=== PATIENT | male | born 1970 | race Caucasian/White ===

== ENCOUNTER 2023-04-15 23:57 | Observation (INO) | payer OTHER, SELFPAY ==
[2023-04-15 16:44] VITALS: BP 145/98
[2023-04-15 17:14] LABS: % Basophils 1.3 % (0-2); % Immature Granulocytes 0.9 % (0-0.5); % Lymphocytes 24.9 % (20.5-51.1); % Monocytes 12.9 % (1.7-9.3); Absolute Basophils 0.2 10^3/uL (0-0.2); Absolute Eosinophils 0.7 10^3/uL (0-0.7); Absolute Immature Granulocytes 0.1 10^3/uL (0-0.05); Absolute Monocytes 1.6 10^3/uL (0.1-0.6); Absolute Neutrophils 6.5 10^3/uL (1.4-6.5); Hematocrit 44.3 % (39.0-52.0); Hemoglobin 16.2 g/dL (13.0-18.0); Mean Corp Hgb Conc. 36.6 g/dL (33.0-37.0); Mean Corpuscular Hgb 27.2 pg (27.0-31.0); Mean Corpuscular Volume 74.3 fL (80.0-94.0); Mean Platelet Volume 9.2 fL (7.4-10.4); Nucleated Red Blood Cells % 0 % (-); Platelet Count 432 10^3/uL (130-400); Red Blood Cell Count 5.96 10^6/uL (4.70-6.10); Red Cell Dist. Width 14.1 % (11.5-14.5); White Blood Cell Count 12.1 10^3/uL (4.8-10.8)
[2023-04-15 17:29] LABS: ALT (SGPT) 25 U/L (0-50); AST (SGOT) 27 U/L (17-59); Alkaline Phosphatase 54 U/L (38-126); Blood Urea Nitrogen 22 mg/dl (9-20); Calcium 9.3 mg/dl (8.4-10.2); Carbon Dioxide 26 mmol/L (22-30); Chloride 102 mmol/L (98-107); Glucose 130 mg/dl (70-99); Potassium 4.4 mmol/L (3.5-5.1); Sodium 137 mmol/L (135-145); Total Protein 7.3 g/dl (6.3-8.2); eGFR > 60.00
[2023-04-15 17:39] LABS: Troponin I < 0.012 ng/ml
[2023-04-15 18:09] LABS: D-Dimer 0.58 ug/mlFEU (0.00-0.50)
--- NOTE | 2023-04-15 21:58 | ED.GENMED ---
History of Present Illness
General
Chief Complaint: DVT/Possible Blood Clot
Source: patient
Exam Limitations: none
Time Seen by Provider: 04/15/23 19:41
Nursing documentation reviewed up to this point in time: agreed with
Travel History
Have you had any contact with someone who has COVID-19?: No
Do you have any symptoms of coronavirus? Fever > 100 degrees, chills, cough, shortness of breath, sore throat, loss of taste or smell, muscle aches, or headache?: No
History of Present Illness
History of Present Illness:
Patient to ED with complaint of left calf pain, chest heaviness. States symptoms started thurs after flyng to [place] and back States he had a prior DVT and PE 1.5 yrs ago. He was placed on Eliquis, discontinued Feb 2022, no further issues.
Denies fever/chills, n/v/d. Denies chest pain, states he feels some difficulty taking a deep breath. Brought self to ED for eval.
Past History
Past History
ED Past Medical History: Other (Spherocytosis, PE, DVT)
ED Past Surgical History: Other (Hernia repair, splenectomy)
Social History
Tobacco: Non-smoker
Alcohol: Occasional
Drug: None
Personal:
Living: with family
Employment: Employed
Family History
Family History: Other (PE)
Review of Systems
Review of Systems
Constitutional: Reports no symptoms
EENT: Reports no symptoms
Respiratory: Reports other (Some difficulty taking a deep breath)
Cardiac: Reports other (Chest heaviness)
ABD/GI: Reports no symptoms
: Reports no symptoms
Musculoskeletal: Reports no symptoms
Skin: Reports no symptoms
Neurological: Reports no symptoms
Psychiatric: Reports no symptoms
Phy Exam
General Physical Exam
General Presentation: well appearing and no apparent distress
General age: appears stated age
General Skin: warm and dry
General Habitus: normal
General Mental: alert
Cardiovascular Exam
Cardiovascular Exam: regular rate/rhythm
Pulmonary Exam
Pulmonary Exam: lungs clear and no respiratory distress
Gastrointestinal Exam
Gastrointestinal Exam: normal bowel sounds, non tender and soft
Musculoskeletal Exam
Musculoskeletal Exam: full ROM and neuro vasc intact
Skin Exam
Skin Exam: normal color
Psychiatric Exam
Psychiatric Exam: normal mood/affect
Course
Orders/Labs/Results
Orders:
Orders
04/15/23 16:50
Electrocardiogram (*1) Urgent
Reason for Study: Shortness of Breath
US Periph Venous LOWER Ext LT Urgent
Comment: .
Reason For Exam: leg pain
04/15/23 16:51
EKG- Treatment ONCE
04/15/23 17:05
Complete Blood Count/With Diff Urgent
Comprehensive Metabolic Panel Urgent
D-Dimer Urgent
Troponin I Urgent
04/15/23 20:48
CT Chest Pe Study Urgent
Comment:
Reason For Exam: cp elevated ddimer, hx PE
04/15/23 22:16
Heparin 10,000 units IV NOW STA
Nursing to Place Non Medication Order As Directed
Physician Order: PTT 6 hours after initial start of Heparin infusion
Above order entered?: Yes
04/15/23 22:18
Add On- LAB Urgent
Tests Added?: PTT
04/15/23 22:28
PTT Urgent
04/15/23 22:30
Heparin 96043 Units/250 ml 25,000 units in 250 ml IV PER PROTOCOL
Weight to be used for heparin protocol in kilograms (kg):: 126.7
Protocol:: DVT/PE
PTT Goal Range to be used:: PTT 73 to 111 seconds
Order type:: Initial
INITIAL Infusion Dose (UNITS/KG/hr) & then follow protocol:: 18 units/kg/hr
Infusion Dose in UNITS/hr & then follow protocol (UNITS/hr):: 2,000
INFUSION RATE in mL/hr & then follow protocol (mL/hr):: 20
For DVT/PE algorithm, re-bolus for low PTT?: Yes
PTT less than or equal to 64 seconds:: Re-bolus 80 units/kg (max 10,000units). Increase by 500 units/hr
(+ 5mL/hr)
PTT 64.1 to 72.9 seconds:: Re-bolus 40 units/kg (max 5,000 units). Increase by 300 units/hr
(+ 3mL/hr)
PTT 73 to 111 seconds:: Target Range. No change in rate.
PTT 111.1 to 130.9 seconds:: Decrease rate by 300 units/hr (- 3 mL/hr)
PTT 131 to 199.9 seconds:: HOLD for 1 hr. Then decrease by 400 units/hr (- 4mL/hr)
PTT greater than or equal to 200 seconds:: HOLD for 2 hrs & Notify Provider. Then decrease by 500 units/hr
(- 5mL/hr)
Lab follow-up:: Each change, PTT q6h until 2 consecutive are therapeutic. Then
PTT daily.
04/15/23 23:56
Admit/Transfer Patient As Directed
Co-Sign Provider:
Level of Care: Inpatient admission
Assign to:: Telemetry
Physician / Group: sachin wheeler
Diagnosis: bilat Pe provoked recurrent
Reason for Telemetry: Arrhythmia
Date to Stop Telemetry: 04/18/23
Time to Stop Telemetry: 11:00
Reason for Hospitalization: bilat Pe provoked recurrent
Expected length of stay greater than two midnights?: Yes
ELOS- Estimated Length of Stay in days: 3
I certify the patient meets the requirements for IP care: Yes
Code Status As Directed
Resuscitation Status: Full Code
04/16/23 00:53
VTE Contraindication Routine
VTE Mechanical Device Contraindication: Medical Contraindication
Pharmocologic Contraindication: Medical Contraindication
Comment: pt on iv heparin
Activity As Directed
Activity Level: As Tolerated
Vital Signs As Directed
Frequency: Per unit guidelines
Ot Eval And Treat Routine
Pt Eval And Treat Routine
Activity Level: As Tolerated
04/16/23 04:16
Basic Metabolic Panel IN AM
Complete Blood Count/With Diff IN AM
PTT Urgent
04/16/23 Breakfast
Cholesterol Lowering
At Your Request: Full Participation
Cholesterol Lowering: Sodium, 2 Gram
Abnormal Lab Results
04/15/23
17:05
WBC 12.1 H 10^3/uL
(4.8-10.8)
MCV 74.3 L fL
(80.0-94.0)
Plt Count 432 H 10^3/uL
(130-400)
Abs Immat Gran (auto) 0.1 H 10^3/uL
(0-0.05)
Absolute Monos (auto) 1.6 H 10^3/uL
(0.1-0.6)
Immature Gran % 0.9 H %
(0-0.5)
Monocytes % 12.9 H %
(1.7-9.3)
D-Dimer 0.58 H ug/mlFEU
(0.00-0.50)
BUN 22 H mg/dl
(9-20)
Glucose 130 H mg/dl
(70-99)
04/15/23 17:05
04/15/23 17:05
Vital Signs
Initial and Last Documented VS:
Initial Vital Signs
Temp Pulse Resp BP Pulse Ox
98.2 F 101 18 145/98 97
04/15/23 16:44 04/15/23 16:44 04/15/23 16:44 04/15/23 16:44 04/15/23 16:44
Last Documented Vital Signs
Temp Pulse Resp BP Pulse Ox
98.6 F 78 15 136/84 96
04/16/23 12:35 04/16/23 12:35 04/16/23 12:35 04/16/23 12:35 04/16/23 12:35
*Radiology
Radiology exam reviewed: radiology read reviewed
*Pulse Oximetry
Patient hypoxic: no
*Critical Care Note
Total Time (30-74mins, 75-104mins- exclusive of procedures): Not Applicable
ED Attending Note
-
Portions of this chart may have been created with voice recognition software.� Occasional wrong word or��sound alike� substitutions may have occurred due to the inherent limitations of voice recognition software.
Discharge Plan
Departure
Date of Disposition: 04/15/23
Time of Disposition: 22:22
Presentation/result/management discussed w/ accepting MD/DO: Hospitalist
Patient with high blood pressure during this ER visit?: No
Condition: Fair
Covid-19: Not Applicable
Discharge Problem:
Pulmonary embolism
Interventions
Interventions:
*Risk Screen - Suicide Last Done: 04/15/23 16:47
*General Assessment Last Done: 04/15/23 16:47
*Neglect/Abuse Screening Last Done: 04/15/23 16:47
*ED COVID-19 Vaccine History Last Done: 04/15/23 21:31
*Nursing Disposition Last Done: 04/16/23 12:38
ED- Cardiac Assessment Last Done: 04/15/23 21:01
ED- Pulmonary Assessment Last Done: 04/15/23 21:01
ED-Peripheral Vascular Assessment Last Done: 04/15/23 21:01
ED-Skin Assessment Last Done: 04/15/23 21:01
[2023-04-15 22:15] VITALS: BP 141/96; BMI 37.9
[2023-04-15] MEDS: HEPARIN 10000 UNITS IV (22:35)
[2023-04-15] MEDS: HEPARIN 25000 UNITS/250 ML IV (22:36)
[2023-04-15 22:38] VITALS: BP 141/95
[2023-04-15 22:52] LABS: APTT 24.9 Sec (23.4-35.0)
[2023-04-15 23:00] VITALS: BP 152/94
--- NOTE | 2023-04-15 23:35 | HPS.HSE ---
Addendum entered and electronically signed by Josiah Torres MD 04/16/23 00:01:
53-year-old male past medical history of hereditary spherocytosis status post colectomy, prior pulmonary embolism 1 and half years ago, myocarditis presenting for left calf pain, shortness of breath after flying from [place] back to here.
Multiple family members with history of pulmonary emboli. EKG shows normal sinus rhythm. CT PE shows bilateral lobe subsegmental pulmonary artery emboli right greater than left with borderline right heart strain provoked in the setting of recent
travel/hereditary spherocytosis. Left lower extremity venous ultrasound negative for DVT. Heparin drip started, echocardiogram. Will require lifelong anticoagulation.
Original Note:
Family Physician
-
Family Physician: Amari Negron
Chief Complaint
-
Chest pain, left calf pain
History of Present Illness
53-year-old male complaining of chest heaviness with left calf pain that started on 5 days ago after flying to [place] 5-hour flight and driving 4 hours. He reports a prior DVT and PE 1-1/2 years ago thought to be from post COVID was on
Eliquis and discontinued February 2022. He reports he followed up with hematology had outpatient blood work that was negative for any clotting factors, but he has history of spherocytosis. He has a strong family history of pulmonary embolisms 1
sister April 2019 PE thought to be related to control other sister history of multiple PEs. He denies injury, fever, chills, palpitations, shortness of breath, cough, nausea, vomiting, diarrhea, abdominal pain. History of
spherocytosis requiring splenectomy, sleep apnea Dx 1 to 2 months
Medical History
Past Medical History
Past Medical History: Reports Other
Additional Past Medical History:
DVT and PE 1-1/2 years ago was on Eliquis and discontinued February 2022. Thought to be post-COVID
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
#Spherocytosis
S/P splenectomy
Obesity
sleep apnea Dx 1 to 2 months
Past Surgical History: Reports Other (Hernia repair, splenectomy)
Social History
Tobacco: Non-smoker
Alcohol: Occasional
Drug: None
Personal:
Living: With Family
Employment: Employed
Family History
Family History: Other (Sister DVT thought to be related to control, other sister history of multiple PEs)
Allergies / Home Medications
Allergies reflects when Allergies were last updated in [employer].
Home Medications with original date entered in [employer]
Allergy/Medication List:
Allergies
Allergy/AdvReac Type Severity Reaction Status Date / Time
No Known Allergies Allergy Verified 04/15/23 16:43
Home Medications
No Meds [No Current Medications] 04/15/23
Review of Systems
-
History Source: Patient and Family ( at bedside)
A 12 point ROS was completed and negative except as noted: Yes
Constitutional: Denies Fever or Chills
EENT: Denies Sore Throat or Mouth Swelling
Respiratory: Reports Trouble Breathing; Denies Cough
Cardiac: Reports Chest Pain
Abdomen/GI: Denies Abdominal Pain, Nausea, Vomiting, Diarrhea or Constipated
: Denies Dysuria, Frequency, Flank Pain, Incontinence or Difficulty Voiding
Musculoskeletal: Reports Other (Left mid calf tenderness); Denies Joint Pain or Joint Swelling
Skin: Denies Itching or Rash
Neurological: Denies Dizzy, Headache or Weakness
Endocrine: Reports No Symptoms
Hematologic/Lymphatic: Reports No Symptoms
Psych: Reports Calm
Physical Exam
Vital Signs
Vital Signs
Temp Pulse Resp BP Pulse Ox
98.2 F 78 22 141/95 96
04/15/23 16:44 04/15/23 22:38 04/15/23 22:30 04/15/23 22:38 04/15/23 22:30
Physical Exam
HEENT: NormoCephalic and PERRLA
Respiratory: Clear; No Wheezes, Rales or Rhonchi
Cardiac: S1/S2 and Regular Rhythm; No Murmur, Rub, Gallop or Peripheral Edema
GI: Soft, Non Tender, Non Distended, Normal Bowel Sounds and No Hepatosplenomegaly
Rectal: Deferred by Provider
Genito-urinary: Deferred by me
Musculoskeletal: No Clubbing, No Cyanosis, No Edema and Other (Tenderness to left mid calf)
Skin: Warm and Dry; No Rash or Jaundice
Neuro: AO x 3, No Motor Deficits, Nonfocal/grossly intact and No Sensory Deficits; No Slurred Speech, Facial Droop, Tremors or Sedated
Psych: Calm
Laboratory Results
-
04/15/23 17:05
04/15/23 17:05
Laboratory Results
APTT 24.9 Sec (23.4-35.0) 04/15/23 22:28
Total Bilirubin 1.0 mg/dl (0.2-1.3) 04/15/23 17:05
AST 27 U/L (17-59) 04/15/23 17:05
ALT 25 U/L (0-50) 04/15/23 17:05
Alkaline Phosphatase 54 U/L (38-126) 04/15/23 17:05
Troponin I < 0.012 ng/ml 04/15/23 17:05
Impression/Plan
-
Impression/plan
Admit to telemetry
# Recurrent provoked PE-recent long flight/Spherocytosis
#Hx DVT PE 2021 was on prior Eliquis DC February 2022
-2D echo
-IV heparin gtt
-Consult [facility] cardiology
CT PE study: Bilateral lower lobe subsegmental pulmonary artery emboli were greater than left borderline right heart strain
#Spherocytosis
S/P splenectomy
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
#Obesity due to excess calorie consumption�BMI 37.9 kg
Weight loss recommended
#Sleep apnea Dx 1 to 2 months
-Has not gotten any CPAP or BiPAP
Full code
[2023-04-16] VITALS: BP 147/91
[2023-04-16 04:15] VITALS: BP 122/79
[2023-04-16 04:27] LABS: % Basophils 1.4 % (0-2); % Eosinophils 7.3 % (0-6); % Immature Granulocytes 1.5 % (0-0.5); % Lymphocytes 36.4 % (20.5-51.1); % Monocytes 13.1 % (1.7-9.3); % Neutrophils 40.3 % (42.2-75.2); Absolute Basophils 0.2 10^3/uL (0-0.2); Absolute Eosinophils 0.9 10^3/uL (0-0.7); Absolute Immature Granulocytes 0.2 10^3/uL (0-0.05); Absolute Lymphocytes 4.3 10^3/uL (1.2-3.4); Absolute Monocytes 1.5 10^3/uL (0.1-0.6); Absolute Neutrophils 4.7 10^3/uL (1.4-6.5); Hemoglobin 15.3 g/dL (13.0-18.0); Mean Corp Hgb Conc. 36.4 g/dL (33.0-37.0); Mean Corpuscular Hgb 26.8 pg (27.0-31.0); Mean Corpuscular Volume 73.6 fL (80.0-94.0); Mean Platelet Volume 9.3 fL (7.4-10.4); Nucleated Red Blood Cells % 0 % (-); Platelet Count 431 10^3/uL (130-400); Red Blood Cell Count 5.71 10^6/uL (4.70-6.10); Red Cell Dist. Width 14.3 % (11.5-14.5); White Blood Cell Count 11.7 10^3/uL (4.8-10.8)
[2023-04-16 04:42] LABS: APTT 114.1 Sec (23.4-35.0)
[2023-04-16 05:16] LABS: Blood Urea Nitrogen 18 mg/dl (9-20); Carbon Dioxide 21 mmol/L (22-30); Chloride 105 mmol/L (98-107); Estimated Creatinine Clearance > 125 ml/min; Glucose 111 mg/dl (70-99); Potassium 4.2 mmol/L (3.5-5.1); Sodium 136 mmol/L (135-145); eGFR > 60.00
[2023-04-16 07:43] VITALS: BP 148/101
--- NOTE | 2023-04-16 08:16 | W.PN.HOSP.TC ---
Today's Communication/Plan
-
Discharge today
Assessment / Plan
Assessment / Plan
HPI: 53-year-old male past medical history of hereditary spherocytosis status post colectomy, prior pulmonary embolism 1 and half years ago, myocarditis presenting for left calf pain, shortness of breath after flying from [place] back to here.�
Multiple family members with history of pulmonary emboli.� EKG shows normal sinus rhythm.� CT PE shows bilateral lobe subsegmental pulmonary artery emboli right greater than left with borderline right heart strain provoked in the setting of recent
travel/hereditary spherocytosis.� Left lower extremity venous ultrasound negative for DVT.� Heparin drip started, echocardiogram. Will require lifelong anticoagulation.
#Recurrent provoked PE-recent long flight/Spherocytosis
#Hx DVT PE 2021 was on prior Eliquis DC February 2022
Echocardiogram reviewed, negative for right heart strain
Denies chest pain or shortness of breath, he is not hypoxic
Currently on heparin drip
Medically stable for discharge on Eliquis 10 mg twice a day for 7 days, then 5 mg twice a day
Informed patient that he needs to take anticoagulation lifelong
Follow-up with pulmonology in the office, as well as his primary care doctor 1 week
�� � ���CT PE study:�Bilateral lower lobe subsegmental pulmonary artery emboli were greater than left borderline right heart strain
#Spherocytosis
S/P splenectomy
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
#Obesity due to excess calorie consumption�BMI 37.9 kg
Weight loss recommended
#Sleep apnea Dx 1 to 2 months
-Has not gotten any CPAP or BiPAP
Physical Exam
General: Obese, no acute distress
HEENT: Normocephalic, Atraumatic, EOMI, MMM
Respiratory: Clear to Auscultation bilaterally
Cardiac: Normal S1/S2, Regular Rate and Rhythm
GI: Soft, Nontender, Nondistended, Normal Bowel Sounds
Extremities: No Clubbing, Cyanosis, or Edema
Neuro: Nonfocal/Grossly Intact
Psych: Calm, Cooperative
Derm: No Visible lesions
Anticipated Discharge: Today
Subjective/Interval History
-
Date of Service: April 16, 2023
Patient denies chest pain, denies shortness of breath.
Objective Data
-
Labs:
Laboratory Results
04/15/23 04/15/23 04/16/23
22:16 22:28 04:16
WBC 11.7 H
Hgb 15.3
Hct 42.0
Plt Count 431 H
APTT Cancelled 24.9 114.1 H
Sodium 136
Potassium 4.2
Chloride 105
Carbon Dioxide 21 L
BUN 18
Creatinine 0.9
Glucose 111 H
Calcium 9.0
04/16/23
11:00
WBC
Hgb
Hct
Plt Count
APTT Pending
Sodium
Potassium
Chloride
Carbon Dioxide
BUN
Creatinine
Glucose
Calcium
Vital Signs:
Vital Signs
Temp Pulse Resp BP Pulse Ox
98.4 F 79 18 148/101 96
04/16/23 07:43 04/16/23 07:43 04/16/23 07:43 04/16/23 07:43 04/16/23 07:43
I&O
04/15/23 04/16/23 04/17/23
06:59 06:59 06:59
Output Total 250 / 250
Balance -250 / -250
[2023-04-16 11:27] LABS: APTT 63.8 Sec (23.4-35.0)
--- NOTE | 2023-04-16 11:52 | CM ---
ED CM consulted for Eliquis card
Discussion with nursing- pharmacist at nursing desk and will provide card
CM will remain available for further assistance with Eliquis if needed
[2023-04-16] MEDS: ELIQUIS 10 MG PO (12:03)
--- NOTE | 2023-04-16 12:19 | W.DCSUMMARY ---
Discharge Summary
Discharge Data
Date of Admission: 04/15/23
Date of Discharge: 04/16/23
-
Pending Results: No
Hospital Course
Discharge diagnosis:
Recurrent provoked bilateral pulmonary emboli
History spherocytosis status post splenectomy
History of myocarditis secondary to COVID in 2019
Obstructive sleep apnea
Obesity due to excess calories
Chest CT:
Bilateral lower lobe subsegmental pulmonary artery emboli, right greater than left. Borderline right heart strain.
LLE Dopplers:
The left common femoral, superficial femoral, popliteal and proximal posterior tibial veins are patent and compressible with normal flow.
Echo:
�Normal left ventricular size, wall thickness and systolic function. No regional
�wall motion abnormalities are seen. LV ejection fraction is 65% by Carvalho's
�method of discs. Normal diastolic function.
�Normal right ventricular size. Normal right ventricular systolic function. S'
�RV free wall tissue Doppler is normal.
�Trace tricuspid regurgitation. Estimated pulmonary artery pressure of 25-30
�mmHg assuming a right atrial pressure of 3 mmHg.
Compared to prior study dated 11/23/21, there is no significant change
Hospital course:
53-year-old male past medical history of hereditary spherocytosis status post splenectomy, prior pulmonary embolism 1 and half years ago, and myocarditis presented with left calf pain, and shortness of breath after flying from [place] back to
here. Patient was found to have acute bilateral PE. Left lower extremity Dopplers were negative for DVT. He was treated with a heparin drip. Echocardiogram was negative for right heart strain.
Patient was not hypoxic, he did not have any more shortness of breath or chest pain. He was transitioned to Eliquis. He was counseled that he requires lifelong anticoagulation. He is medically stable for discharge on Eliquis 10 mg twice a day for
7 days, then 5 mg twice a day. He has been instructed to follow-up with his usual formula mixer in the office, as well as his primary care doctor 1 week.
Disposition: Home self-care
Discharge planning: Required 38 minutes
Discharge Plan
-
Patient Disposition: Home (Routine Discharge)
Discharge Diagnosis/Procedures: Recurrent provoked pulmonary emboli
Condition: Good
Diet: Low Fat and Low Cholesterol
Activity: As tolerated
Driving Restrictions: As prior to admission
Prescriptions:
New
Eliquis 5 mg tablet
See Rx Instructions .ROUTE .COMPLEX Qty: 75 0RF
Rx Instructions:
2 tablets twice a day for 7 days, then 1 tablet twice a day
Discharge Orders:
Discharge Patient (As Directed); Ordered 04/16/23
Ordered By: Chuy Gutierrez
Discharge Date and Time
Discharge Date/Time: 04/16/23 12:38
[2023-04-16 12:35] VITALS: BP 136/84
== END 2023-04-16 12:38 | disposition home or self-care (01) ==
LOC: ED 23:57
PROVIDERS: Clinical Nurse Specialist Family Health; Nurse Practitioner; ADMITTING PHYSICIAN Hospitalist; EMERGENCY PHYSICIAN Emergency Medicine; FAMILY PHYSICIAN Internal Medicine
DX: I26.94 Multiple subsegmental thrombotic pulmonary emboli without acute cor pulmonale (principal); D58.0 Hereditary spherocytosis; E66.09 Other obesity due to excess calories; G47.33 Obstructive sleep apnea (adult) (pediatric); Z68.37 Body mass index [BMI] 37.0-37.9, adult; Z86.16 Personal history of COVID-19; Z86.711 Personal history of pulmonary embolism; Z86.718 Personal history of other venous thrombosis and embolism; Z90.49 Acquired absence of other specified parts of digestive tract
CPT/HCPCS: 71275; 80048; 80053; 84484; 85025; 85379; 85730; 93005; 93306; 93971; 96374; 99285; G0378; Q9967